=== PATIENT | female | born 1995 ===

== ENCOUNTER 2016-12-14 00:20 | Emergency (ER) | payer MEDICAID ==
[2016-12-14 00:38] VITALS: BP 134/66; PULSE 86; RESP 16; TEMP 98.3; O2SAT 100
--- NOTE | 2016-12-14 00:48 | ED PDOC ---
HPI: CCC, URI, Sore Throat Time Seen by Provider: 12/14/16 00:28 Chief Complaint (Nursing): ENT Problem Chief Complaint (Provider): ENT problem History Per: Patient History/Exam Limitations: no limitations Onset/Duration Of Symptoms: Days (3x weeks) Current Symptoms Are (Timing): Constant Location Of Pain: Other (right side of tongue) Ear Symptoms: Bilateral: None Severity: Moderate Additional Complaint(s): 21 year old female with no pertinent medical history presents to the ED with complaints of constant right sided tongue for 3x weeks. She reports that 3x weeks ago she had a dental procedure, and has had pain on the right side of her tongue since then. Patient states that the pain is still bothering her today, which is what prompted her visit to the ED. She denies having any other medical complaints. PMD: [facility] Past Medical History Reviewed: Historical Data, Nursing Documentation, Vital Signs Vital Signs: Last Vital Signs Temp 98.3 F 12/14/16 00:36 Pulse 86 12/14/16 00:36 Resp 16 12/14/16 00:36 BP 134/66 12/14/16 00:36 Pulse Ox 100 12/14/16 00:55 - Medical History PMH: No Chronic Diseases - Surgical History Surgical History: No Surg Hx - Family History Family History: States: Unknown Family Hx - Social History Current smoker - smoking cessation education provided: No Alcohol: Social Drugs: Denies - Allergies Allergies/Adverse Reactions: Allergies Allergy/AdvReac Type Severity Reaction Status Date / Time No Known Allergies Allergy Verified 12/14/16 00:38 Review of Systems ROS Statement: Except As Marked, All Systems Reviewed And Found Negative ENT: Positive for: Other (right sided tongue pain) Physical Exam - Reviewed Nursing Documentation Reviewed: Yes Vital Signs Reviewed: Yes - Physical Exam Appears: Positive for: Well, Non-toxic, No Acute Distress Head Exam: Positive for: ATRAUMATIC, NORMOCEPHALIC Skin: Positive for: Normal Color, Warm, Dry ENT: Positive for: Other (2 solitary ulcerations on tongue (less than 1 millimeter each)) Neurologic/Psych: Positive for: Alert, Oriented (3x) - ECG O2 Sat by Pulse Oximetry: 100 (RA) Pulse Ox Interpretation: Normal Medical Decision Making Medical Decision Makin:28 Initial impression: 21 year old female with tongue ulcerations. Plan: Patient has an appointment with her dentist in 4x days. Patient is stable for discharge and will be given a prescription for 2% viscous lidocaine. Scribe Attestation: Documented by Camila Clark, acting as a scribe for Manuel Abarca MD. Provider Scribe Attestation: All medical record entries made by the Scribe were at my direction and personally dictated by me. I have reviewed the chart and agree that the record accurately reflects my personal performance of the history, physical exam, medical decision making, and the department course for this patient. I have also personally directed, reviewed, and agree with the discharge instructions and disposition. Disposition - Clinical Impression Clinical Impression: Tongue ulcer - Disposition Disposition: Routine/Home Disposition Time: 00:45 Condition: STABLE Instructions: Lidocaine (Into the mouth) Forms: [employer] (Greenlandic)
== END 2016-12-14 01:46 | disposition home or self-care (01) ==
LOC: H.ER 00:20
DX: K14.0 Glossitis (principal)

== ENCOUNTER 2017-08-30 23:18 | Emergency (ER) | payer MEDICAID ==
[2017-08-30 23:24] VITALS: BP 127/84; PULSE 62; RESP 16; TEMP 98.2; O2SAT 97
--- NOTE | 2017-08-30 23:53 | ED PDOC ---
HPI: CCC, URI, Sore Throat Time Seen by Provider: 08/30/17 23:30 Chief Complaint (Nursing): ENT Problem Chief Complaint (Provider): NOSERING STUCK IN NOSTRIL History Per: Patient (21 Y/O FEMALE HERE FOR NOSE RING IMBEDDED IN NOSTRIL RIGHT EXTERNAL NARE. STATES SHE HAS NOTED GRADUAL SINKING INTO NARE. NOSERING PLACED 6 DAYS AGO.) Past Medical History Reviewed: Historical Data, Nursing Documentation, Vital Signs Vital Signs: Last Vital Signs Temp 98.2 F 08/30/17 23:21 Pulse 62 08/30/17 23:21 Resp 16 08/30/17 23:21 BP 127/84 08/30/17 23:21 Pulse Ox 97 08/30/17 23:53 - Family History Family History: States: Unknown Family Hx - Home Medications Home Medications: Ambulatory Orders Medication Instructions Recorded Bacitracin OINT 0.5 gm TOP BID #1 tube 08/30/17 Cephalexin [Keflex] 500 mg PO TID #15 capsule 08/30/17 - Allergies Allergies/Adverse Reactions: Allergies Allergy/AdvReac Type Severity Reaction Status Date / Time No Known Allergies Allergy Verified 08/30/17 23:21 Review of Systems ROS Statement: Except As Marked, All Systems Reviewed And Found Negative Physical Exam - Reviewed Nursing Documentation Reviewed: Yes Vital Signs Reviewed: Yes - Physical Exam Appears: Positive for: Well, Non-toxic, No Acute Distress Head Exam: Positive for: ATRAUMATIC, NORMAL INSPECTION, NORMOCEPHALIC Skin: Positive for: Normal Color, Warm, DRY Eye Exam: Positive for: EOMI, Normal appearance, PERRL ENT: Negative for: Normal ENT Inspection (RIGHT EXT LATERAL NARE WITH SWELLING NOTED.) Neck: Positive for: Normal, Painless ROM Cardiovascular/Chest: Positive for: Regular Rate, Rhythm Respiratory: Positive for: CNT, Normal Breath Sounds Gastrointestinal/Abdominal: Positive for: Normal Exam, Soft Back: Positive for: Normal Inspection Extremity: Positive for: Normal ROM Neurologic/Psych: Positive for: Alert, Oriented - ECG O2 Sat by Pulse Oximetry: 97 - Progress ED Course And Treament: ACETAMINOPHEN 650MG X 1 DOSE Disposition - Clinical Impression Clinical Impression: Foreign body (FB) in soft tissue - Patient ED Disposition Is Patient to be Admitted: No - Disposition Disposition: Routine/Home Disposition Time: 23:56 Condition: FAIR Prescriptions: Bacitracin OINT 0.5 gm TOP BID #1 tube Cephalexin [Keflex] 500 mg PO TID #15 capsule Instructions: Foreign Body in Skin (DC) Forms: [employer] (Danish) Procedures - Foreign Body Removal Consent Obtained: verbal consent Time Out Performed: Yes Site: right, nare Description of foreign body: other (NOSERING) Sedation/Analgesia: none Technique: removal with forceps, other (NOSERING PUSHED TO EXTERNAL NARE SURFACE AND THEN UNSCREWED WITH FORECEPS) Complications:: None Post-procedure exam: Awake, alert Neurovascular: Normal distal pulse - FB Removal Nose Nostril Right Location: Nostril Right Patient Tolorated Procedure: No Complications Complications: None
== END 2017-08-31 00:07 | disposition home or self-care (01) ==
LOC: H.ER 23:18
DX: T17.1XXA Foreign body in nostril, initial encounter (principal)